=== PATIENT | female | born 1990 | race Two or more races ===

== ENCOUNTER 2018-04-22 19:08 | Emergency (ER) | payer BC ==
[2018-04-22] MEDS ORDERED: Sodium Chloride 0.9% 10 ML Syringe FLUSH PRN (19:09)
--- NOTE | 2018-04-22 19:21 | EDM.PDOC ---
ED HPI GENERAL MEDICAL PROBLEM - General Chief Complaint: General Stated Complaint: UNRESPONSIVE Time Seen by Provider: 04/22/18 19:10 Source of Information: Reports: Family History Limitations: Reports: No Limitations - History of Present Illness INITIAL COMMENTS - FREE TEXT/NARRATIVE: This is a 27-year-old female. Apparently she and her significant other were at [employer] this evening eating and then they stepped outside to smoke. According to her significant other as she was smoking she choked she coughed and then she vomited and became short of breath and afterwards she was acting really strange. She is brought in here by his vehicle to the ER. When she arrives she appears to be dazed and confused not talking just staring out into space but her eyes are open. She is breathing normally with occasional wheeze but her heart rate is 130. Patient cannot add to this history at this time. It should be noted that when I went in to see the patient her blood sugar was 160 and that she was moving her 4 extremities and a floppy sort of way without purpose. She would not answer questions she would not stare at me. She would not passport support associate my hand or move on command. After the first few minutes of being in the ER she began to verbalize stating no but still no coherent speech. Her significant other states that she does not take drugs and cigarettes they were smoking were not laced with anything. He does state she has a history of asthma but no history of anxiety or panic attacks. - Related Data Allergies Allergy/AdvReac Type Severity Reaction Status Date / Time No Known Allergies Allergy Verified 04/22/18 19:17 Home Meds: Home Meds Albuterol Sulfate [Proair Hfa] 2 puff INH Q4HR PRN 04/22/18 [History] ED ROS GENERAL - Review of Systems Review Of Systems: Unable To Obtain ED EXAM, GENERAL - Physical Exam Exam: See Below Exam Limited By: Altered Mental Status General Appearance: Other (The patient is awake, but she is not able to verbalize at this time even though she looks around the room randomly.) Eye Exam: Bilateral Eye: Normal Inspection, Other (There is no nystagmus noted, her pupils are equal and they do react) Ears: Normal External Exam, Normal Canal, Normal TMs Nose: Normal Inspection Throat/Mouth: Normal Inspection, Normal Oropharynx, No Airway Compromise Head: Normocephalic Neck: Supple, Other (She will move her neck from side to side and does not appear to have limitation) Respiratory/Chest: Other (She is breathing rapidly and there is an occasional expiratory wheeze but she is receiving a DuoNeb presently and her lungs appear to be essentially clear without rales or rhonchi or crackles) Cardiovascular: Regular Rate, Rhythm, No Murmur, Tachycardia, Other (She is tachycardiac her rate is 130) GI/Abdominal: Soft, Non-Tender, Other (She does not appear to react or appear to flinch when I palpate her abdomen in all 4 quadrants, there is no organomegaly noted) Extremities: Normal Inspection, Other (There is no redness of her arms or legs, there is no edema noted, she will move her arms and legs spontaneously and it appears to be equally, she will not however move them to command) Neurological: Other (Patient is awake but she really doesn't respond to any verbal stimuli even from her significant other) Skin Exam: Warm, Dry EKG INTERPRETATION EKG Date: 04/22/18 Time: 19:12 EKG Interpretation Comments: EKG shows a sinus tachycardia rate of 128. There is really no significant acute ST or T-wave changes or ST elevation and there is really no acute ischemia noted. There is a prolonged QT interval noted however. Course - Vital Signs Last Recorded V/S: Last Vital Signs Temp 98.5 F 04/22/18 19:12 Pulse 128 H 04/22/18 19:12 Resp 22 H 04/22/18 19:12 BP 120/71 04/22/18 19:12 Pulse Ox 96 04/22/18 19:52 - Orders/Labs/Meds Orders: Active Orders 24 hr Category Date Time Status EKG 12 Lead [EKG Documentation Completion] [RC] STAT Care 04/22/18 19:10 Active Oxygen Therapy [RC] ASDIRECTED Care 04/22/18 19:13 Active Peripheral IV Care [RC] . DIRECTED Care 04/22/18 19:15 Active RT Aerosol Therapy [RC] ASDIRECTED Care 04/22/18 19:51 Active Chest 1V Frontal [CR] Stat Exams 04/22/18 19:12 Taken Head wo Cont [CT] Stat Exams 04/22/18 19:11 Taken DRUG SCREEN, URINE [URCHEM] Stat Lab 04/22/18 19:39 Ordered Sodium Chloride 0.9% [Saline Flush] Med 04/22/18 19:09 Active 10 ml FLUSH ASDIRECTED PRN Peripheral IV Insertion Adult [OM.PC] Stat Oth 04/22/18 19:13 Ordered Medication Orders Sodium Chloride (Saline Flush) 10 ml FLUSH ASDIRECTED PRN PRN Reason: Keep Vein Open Last Admin: 04/22/18 19:29 Dose: 10 ml Labs: Laboratory Tests 04/22/18 04/22/18 04/22/18 Range/Units 19:00 19:00 19:00 WBC 16.86 H (3.98-10.04) K/mm3 RBC 4.31 (3.98-5.22) M/mm3 Hgb 13.3 (11.2-15.7) gm/L Hct 38.5 (34.1-44.9) % MCV 89.3 (79.4-94.8) fl MCH 30.9 (25.6-32.2) pg MCHC 34.5 (32.2-35.5) g/dl RDW Std Deviation 39.2 (36.4-46.3) fL Plt Count 342 (182-369) K/mm3 MPV 10.0 (9.4-12.3) fl Neut % (Auto) 32.8 L (34.0-71.1) % Lymph % (Auto) 55.7 H (19.3-51.7) % Moody % (Auto) 7.9 (4.7-12.5) % Eos % (Auto) 2.6 (0.7-5.8) Baso % (Auto) 0.7 (0.1-1.2) % Neut # (Auto) 5.55 (1.56-6.13) K/mm3 Lymph # (Auto) 9.39 H (1.18-3.74) K/mm3 Moody # (Auto) 1.33 H (0.24-0.36) K/mm3 Eos # (Auto) 0.43 H (0.04-0.36) K/mm3 Baso # (Auto) 0.11 H (0.01-0.08) K/mm3 Manual Slide Review Normal smear D-Dimer, Quantitative 0.40 (0.19-0.50) mg/L VBG pH (7.30-7.40) VBG pCO2 (41-51) mmHg VBG pO2 (40-80) mmHG VBG HCO3 (22-26) meq/L VBG O2 Saturation VBG Base Excess (-4.0-2.0) O2 Delivery Device Sodium 137 (136-145) mEq/L Potassium 2.2 L* (3.5-5.1) mEq/L Chloride 101 (98-107) mEq/L Carbon Dioxide 19 L (21-32) mEq/L Anion Gap 19.2 H (5-15) BUN 15 (7-18) mg/dL Creatinine 0.9 (0.55-1.02) mg/dL Est Cr Clr Drug Dosing 79.97 mL/min Estimated GFR (MDRD) > 60 (>60) mL/min BUN/Creatinine Ratio 16.7 (14-18) Glucose 196 H (74-106) mg/dL Lactic Acid (0.4-2.0) mmol/L Calcium 8.9 (8.5-10.1) mg/dL Total Bilirubin 0.1 L (0.2-1.0) mg/dL AST 15 (15-37) U/L ALT 14 (14-59) U/L Alkaline Phosphatase 73 (46-116) U/L Troponin I < 0.017 (0.00-0.056) ng/mL Total Protein 8.0 (6.4-8.2) g/dl Albumin 4.3 (3.4-5.0) g/dl Globulin 3.7 gm/dL Albumin/Globulin Ratio 1.2 (1-2) HCG, Qual (NEGATIVE) Urine Color (Yellow) Urine Appearance (Clear) Urine pH (5.0-8.0) Ur Specific [place] (1.005-1.030) Urine Protein (Negative) Urine Glucose (UA) (Negative) Urine Ketones (Negative) Urine Occult Blood (Negative) Urine Nitrite (Negative) Urine Bilirubin (Negative) Urine Urobilinogen (0.2-1.0) Ur Leukocyte Esterase (Negative) Urine RBC (0-5) /hpf Urine WBC (0-5) /hpf Ur Epithelial Cells (0-5) /hpf Amorphous Sediment (NOT SEEN) /hpf Urine Bacteria (FEW) /hpf Urine Mucus (FEW) /hpf Salicylates (2.8-20) mg/dL Urine Opiates Screen (NEGATIVE) Ur Buprenorphine Scrn (NEGATIVE) Ur Oxycodone Screen (NEGATIVE) Urine Methadone Screen (NEGATIVE) Ur Propoxyphene Screen (NEGATIVE) Acetaminophen 0 L (10-30) ug/mL Ur Barbiturates Screen (NEGATIVE) Ur Tricyclics Screen (NEGATIVE) Ur Phencyclidine Scrn (NEGATIVE) Ur Amphetamine Screen (NEGATIVE) U Methamphetamines Scrn (NEGATIVE) U Benzodiazepines Scrn (NEGATIVE) U Cocaine Metab Screen (NEGATIVE) U Marijuana (THC) Screen (NEGATIVE) Ethyl Alcohol 0.00 (0.00) gm% 04/22/18 04/22/18 04/22/18 Range/Units 19:00 19:00 19:26 WBC (3.98-10.04) K/mm3 RBC (3.98-5.22) M/mm3 Hgb (11.2-15.7) gm/L Hct (34.1-44.9) % MCV (79.4-94.8) fl MCH (25.6-32.2) pg MCHC (32.2-35.5) g/dl RDW Std Deviation (36.4-46.3) fL Plt Count (182-369) K/mm3 MPV (9.4-12.3) fl Neut % (Auto) (34.0-71.1) % Lymph % (Auto) (19.3-51.7) % Moody % (Auto) (4.7-12.5) % Eos % (Auto) (0.7-5.8) Baso % (Auto) (0.1-1.2) % Neut # (Auto) (1.56-6.13) K/mm3 Lymph # (Auto) (1.18-3.74) K/mm3 Moody # (Auto) (0.24-0.36) K/mm3 Eos # (Auto) (0.04-0.36) K/mm3 Baso # (Auto) (0.01-0.08) K/mm3 Manual Slide Review D-Dimer, Quantitative (0.19-0.50) mg/L VBG pH (7.30-7.40) VBG pCO2 (41-51) mmHg VBG pO2 (40-80) mmHG VBG HCO3 (22-26) meq/L VBG O2 Saturation VBG Base Excess (-4.0-2.0) O2 Delivery Device Sodium (136-145) mEq/L Potassium (3.5-5.1) mEq/L Chloride (98-107) mEq/L Carbon Dioxide (21-32) mEq/L Anion Gap (5-15) BUN (7-18) mg/dL Creatinine (0.55-1.02) mg/dL Est Cr Clr Drug Dosing mL/min Estimated GFR (MDRD) (>60) mL/min BUN/Creatinine Ratio (14-18) Glucose (74-106) mg/dL Lactic Acid 3.8 H (0.4-2.0) mmol/L Calcium (8.5-10.1) mg/dL Total Bilirubin (0.2-1.0) mg/dL AST (15-37) U/L ALT (14-59) U/L Alkaline Phosphatase (46-116) U/L Troponin I (0.00-0.056) ng/mL Total Protein (6.4-8.2) g/dl Albumin (3.4-5.0) g/dl Globulin gm/dL Albumin/Globulin Ratio (1-2) HCG, Qual Negative (NEGATIVE) Urine Color (Yellow) Urine Appearance (Clear) Urine pH (5.0-8.0) Ur Specific [place] (1.005-1.030) Urine Protein (Negative) Urine Glucose (UA) (Negative) Urine Ketones (Negative) Urine Occult Blood (Negative) Urine Nitrite (Negative) Urine Bilirubin (Negative) Urine Urobilinogen (0.2-1.0) Ur Leukocyte Esterase (Negative) Urine RBC (0-5) /hpf Urine WBC (0-5) /hpf Ur Epithelial Cells (0-5) /hpf Amorphous Sediment (NOT SEEN) /hpf Urine Bacteria (FEW) /hpf Urine Mucus (FEW) /hpf Salicylates 1.9 L (2.8-20) mg/dL Urine Opiates Screen (NEGATIVE) Ur Buprenorphine Scrn (NEGATIVE) Ur Oxycodone Screen (NEGATIVE) Urine Methadone Screen (NEGATIVE) Ur Propoxyphene Screen (NEGATIVE) Acetaminophen (10-30) ug/mL Ur Barbiturates Screen (NEGATIVE) Ur Tricyclics Screen (NEGATIVE) Ur Phencyclidine Scrn (NEGATIVE) Ur Amphetamine Screen (NEGATIVE) U Methamphetamines Scrn (NEGATIVE) U Benzodiazepines Scrn (NEGATIVE) U Cocaine Metab Screen (NEGATIVE) U Marijuana (THC) Screen (NEGATIVE) Ethyl Alcohol (0.00) gm% 04/22/18 04/22/18 04/22/18 Range/Units 19:39 19:39 19:42 WBC (3.98-10.04) K/mm3 RBC (3.98-5.22) M/mm3 Hgb (11.2-15.7) gm/L Hct (34.1-44.9) % MCV (79.4-94.8) fl MCH (25.6-32.2) pg MCHC (32.2-35.5) g/dl RDW Std Deviation (36.4-46.3) fL Plt Count (182-369) K/mm3 MPV (9.4-12.3) fl Neut % (Auto) (34.0-71.1) % Lymph % (Auto) (19.3-51.7) % Moody % (Auto) (4.7-12.5) % Eos % (Auto) (0.7-5.8) Baso % (Auto) (0.1-1.2) % Neut # (Auto) (1.56-6.13) K/mm3 Lymph # (Auto) (1.18-3.74) K/mm3 Moody # (Auto) (0.24-0.36) K/mm3 Eos # (Auto) (0.04-0.36) K/mm3 Baso # (Auto) (0.01-0.08) K/mm3 Manual Slide Review D-Dimer, Quantitative (0.19-0.50) mg/L VBG pH 7.35 (7.30-7.40) VBG pCO2 34.2 L (41-51) mmHg VBG pO2 44.0 (40-80) mmHG VBG HCO3 18.5 L (22-26) meq/L VBG O2 Saturation 71.6 VBG Base Excess -5.8 L (-4.0-2.0) O2 Delivery Device Room air Sodium (136-145) mEq/L Potassium (3.5-5.1) mEq/L Chloride (98-107) mEq/L Carbon Dioxide (21-32) mEq/L Anion Gap (5-15) BUN (7-18) mg/dL Creatinine (0.55-1.02) mg/dL Est Cr Clr Drug Dosing mL/min Estimated GFR (MDRD) (>60) mL/min BUN/Creatinine Ratio (14-18) Glucose (74-106) mg/dL Lactic Acid (0.4-2.0) mmol/L Calcium (8.5-10.1) mg/dL Total Bilirubin (0.2-1.0) mg/dL AST (15-37) U/L ALT (14-59) U/L Alkaline Phosphatase (46-116) U/L Troponin I (0.00-0.056) ng/mL Total Protein (6.4-8.2) g/dl Albumin (3.4-5.0) g/dl Globulin gm/dL Albumin/Globulin Ratio (1-2) HCG, Qual (NEGATIVE) Urine Color Yellow (Yellow) Urine Appearance Clear (Clear) Urine pH 5.5 (5.0-8.0) Ur Specific [place] > or = 1.030 (1.005-1.030) Urine Protein 1+ H (Negative) Urine Glucose (UA) Negative (Negative) Urine Ketones Trace H (Negative) Urine Occult Blood Trace-intact H (Negative) Urine Nitrite Negative (Negative) Urine Bilirubin Negative (Negative) Urine Urobilinogen 0.2 (0.2-1.0) Ur Leukocyte Esterase Negative (Negative) Urine RBC 0-5 (0-5) /hpf Urine WBC 0-5 (0-5) /hpf Ur Epithelial Cells 20-30 H (0-5) /hpf Amorphous Sediment Moderate H (NOT SEEN) /hpf Urine Bacteria Rare (FEW) /hpf Urine Mucus Not seen (FEW) /hpf Salicylates (2.8-20) mg/dL Urine Opiates Screen Negative (NEGATIVE) Ur Buprenorphine Scrn Negative (NEGATIVE) Ur Oxycodone Screen Negative (NEGATIVE) Urine Methadone Screen Negative (NEGATIVE) Ur Propoxyphene Screen Negative (NEGATIVE) Acetaminophen (10-30) ug/mL Ur Barbiturates Screen Negative (NEGATIVE) Ur Tricyclics Screen Negative (NEGATIVE) Ur Phencyclidine Scrn Negative (NEGATIVE) Ur Amphetamine Screen Negative (NEGATIVE) U Methamphetamines Scrn Negative (NEGATIVE) U Benzodiazepines Scrn Negative (NEGATIVE) U Cocaine Metab Screen Negative (NEGATIVE) U Marijuana (THC) Screen Presumptive positive H (NEGATIVE) Ethyl Alcohol (0.00) gm% Meds: Medications Generic Name Dose Route Start Last Admin Trade Name Freq PRN Reason Stop Dose Admin Sodium Chloride 10 ml 04/22/18 19:09 04/22/18 19:29 Saline Flush FLUSH 10 ml ASDIRECTED PRN Administration Keep Vein Open Discontinued Medications Generic Name Dose Route Start Last Admin Trade Name Freq PRN Reason Stop Dose Admin Albuterol 2.5 mg 04/22/18 19:51 04/22/18 19:52 Proventil Neb Soln NEB 04/22/18 19:52 2.5 mg ONETIME ONE Administration Potassium Chloride 10 meq/ 100 mls @ 100 mls/hr 04/22/18 19:38 04/22/18 19:43 Premix IV 04/22/18 20:37 100 mls/hr Q1H STA Administration Potassium Chloride 10 meq/ 100 mls @ 100 mls/hr 04/22/18 19:39 04/22/18 20:45 Premix IV 04/22/18 20:38 100 mls/hr STAT STA Administration - Radiology Interpretation Free Text/Narrative:: CT scan of the head did not show any acute intracranial abnormalities are noted. There is no ischemic stroke or infarct noted. Chest x-ray does not show any acute changes or infiltrates. - Re-Assessments/Exams Free Text/Narrative Re-Assessment/Exam: 04/22/18 19:41 I went back in the room to check on the patient she is much more mobile with her arms and legs. She gives the sign that she wants something to drink and when her significant other said he wanted water she nodded her head and did the "uh hah" verbalization. 04/22/18 19:43 Just got the report back to her potassium is 2.2 but I do not believe that would cause her change in mental status. We'll start 10 mEq IV PB along with the IV fluids she is getting. 04/22/18 19:43 The blood gas came back but it was a venous draw but it does show that her pH is 7.35 her CO2 is 34. Her pulse ox on room air is running 94-95%. I did not ask him to redraw the blood gas at this time. 04/22/18 20:45 The patient is beginning to wake up more even though she still is not as coherent or talkative or communicative as I would appreciate. Her significant other states however that she is much better than she was before she came in and when she arrived here. We will continue to monitor her. It should be noted that her urine drug screen was positive for marijuana was negative for salicylates and acetaminophen and also negative for alcohol. 04/22/18 22:03 Patient is now fully awake and oriented 3 and talking without difficulty. She remembers this episode and thinks it was an asthma attack and then she had a panic attack on top of that that made her less responsive. Right now she feels like she is breathing okay and she feels okay but I'm going to water a little bit longer to make certain that she is ready to go home. I did tell her about the lab results as well as the CT scan and chest x-ray all being normal. Her significant other is at her bedside. 04/22/18 22:50 The patient continues to feel good and she is requesting to go home now. I counseled her not to smoke with her history of asthma. I also told her significant other that if she has any further spells like this to bring her directly back to the ER for reevaluation. Departure - Departure Time of Disposition: 22:50 Disposition: Home, Self-Care 01 Condition: Fair Clinical Impression: Panic attack Altered mental status Qualifiers: Altered mental status type: transient alteration of awareness Qualified Code(s) : R40.4 - Transient alteration of awareness Asthma attack Qualifiers: Asthma severity: moderate Asthma persistence: unspecified Qualified Code(s): J45.901 - Unspecified asthma with (acute) exacerbation - Discharge Information *PRESCRIPTION DRUG MONITORING PROGRAM REVIEWED*: Not Applicable *COPY OF PRESCRIPTION DRUG MONITORING REPORT IN PATIENT DONNIE: Not Applicable Referrals: PCP,None [Primary Care Provider] - Forms: ED Department Discharge Additional Instructions: Tonight drink lots of fluids. Avoid any alcohol and no smoking, please avoid also any marijuana use since that will make your asthma worse as well, rest and sleep as much as possible, if there is any return of these symptoms you must return to the ER immediately, follow up with your family physician this week for recheck - My Orders Last 24 Hours: My Active Orders 04/22/18 19:10 EKG 12 Lead [EKG Documentation Completion] [RC] STAT 04/22/18 19:11 Head wo Cont [CT] Stat 04/22/18 19:39 DRUG SCREEN, URINE [URCHEM] Stat - Assessment/Plan Last 24 Hours: My Active Orders 04/22/18 19:10 EKG 12 Lead [EKG Documentation Completion] [RC] STAT 04/22/18 19:11 Head wo Cont [CT] Stat 04/22/18 19:39 DRUG SCREEN, URINE [URCHEM] Stat
[2018-04-22] MEDS ORDERED: Potassium Chloride 10 MEQ in Premix Bag 1 BAG IV STA ×2 (19:38→19:39)
[2018-04-22] MEDS ORDERED: Albuterol 0.083% 2.5 MG/3 ML Neb Soln NEB ONE (19:51)
[2018-04-22 20:13] LABS: ACETAMINOPHEN 0 ug/mL (10-30)
--- NOTE | 2018-04-25 08:37 | CR ---
Chest: Portable view of the chest was obtained. Comparison: No previous study. Heart size and mediastinum are normal. Lungs are clear. Bony structures are grossly intact. Impression: 1. Nothing acute is seen on portable chest x-ray. Diagnostic code #1
== END 2018-04-22 23:02 | disposition home or self-care (01) ==
LOC: JD.ED 19:08
DX: R40.4 Transient alteration of awareness (principal); J45.901 Unspecified asthma with (acute) exacerbation; F41.0 Panic disorder [episodic paroxysmal anxiety]; E87.6 Hypokalemia
CPT/HCPCS: 36415; 51701; 70450; 71045; 80053; 80306; 81001; 82803; 83605; 84484; 84703; 85025; 85379; 93005; 94640; 96365; 96366; 99285; G0480; J3480; J7050; 93010; 99284-25